=== PATIENT | female | born 1950 | race Caucasian/White ===

== ENCOUNTER 2020-09-01 12:46 | Inpatient (IN) | payer MEDICARE ==
--- NOTE | 2020-09-01 13:41 | ED ---
General Adult HPI - General Chief complaint: Psychiatric Symptoms Stated complaint: Hallucinations Time Seen by Provider: 09/01/20 12:50 Source: patient, family, RN notes reviewed, old records reviewed Mode of arrival: wheelchair - History of Present Illness Initial comments: This is a 70-year-old female who presents emergency Department with a recent history since June of . According to the daughter the patient's hallucinations are worsening over the last 3 months. Patient has seen animals in the house and constantly is seeing bugs on her hands. Daughter states she is bringing her hands with Windex to try to get the bugs off even though the patient states she knows is no bugs she can't stop trying to get rid of him. Patient has been placed on Seroquel. Patient is not gotten better with cervical. According to the daughter this all began after she had knee replacement surgery in June. Patient denies any pain patient denies any difficulty breathing. Patient denies any chest pain abdominal pain. Patient denies headache patient denies numbness weakness. - Related Data Allergies Allergy/AdvReac Type Severity Reaction Status Date / Time No Known Allergies Allergy Verified 09/01/20 16:50 Review of Systems ROS Statement: Those systems with pertinent positive or pertinent negative responses have been documented in the HPI. ROS Other: All systems not noted in ROS Statement are negative. Past Medical History Past Medical History: COPD, Dementia, Hypertension History of Any Multi-Drug Resistant Organisms: None Reported Past Surgical History: Joint Replacement Additional Past Surgical History / Comment(s): cataract surgery Past Psychological History: No Psychological Hx Reported Smoking Status: Former smoker Past Alcohol Use History: None Reported Past Drug Use History: None Reported General Exam - General Exam Comments Initial Comments: GENERAL: Patient is well-developed and well-nourished. Patient is nontoxic and well-hydrated and is in mild distress. ENT: Neck is soft and supple. No significant lymphadenopathy is noted. Oropharynx is clear. Moist mucous membranes. Neck has full range of motion without eliciting any pain. EYES: The sclera were anicteric and conjunctiva were pink and moist. Extraocular movements were intact and pupils were equal round and reactive to light. Eyelids were unremarkable. PULMONARY: Unlabored respirations. Good breath sounds bilaterally. No audible rales rhonchi or wheezing was noted. CARDIOVASCULAR: There is a regular rate and rhythm without any murmurs gallops or rubs. ABDOMEN: Soft and nontender with normal bowel sounds. SKIN: Skin is clear with no lesions or rashes and otherwise unremarkable. NEUROLOGIC: Patient is alert and oriented x3. Cranial nerves II through XII are grossly intact. Motor and sensory are also intact. Normal speech, volume and content. Symmetrical smile. MUSCULOSKELETAL: Normal extremities with adequate strength and full range of motion. LYMPHATICS: No significant lymphadenopathy is noted PSYCHIATRIC: Patient currently thinks there are bugs on her arms now she's trying to get them off as I speak to her. Course Vital Signs 09/01/20 09/01/20 09/01/20 12:52 13:42 14:00 Temperature 98.6 F Pulse Rate 100 Respiratory 18 18 Rate Blood Pressure 154/77 144/74 O2 Sat by Pulse 97 97 93 L Oximetry 09/01/20 09/01/20 09/01/20 14:20 14:30 15:00 Temperature Pulse Rate 92 Respiratory 18 Rate Blood Pressure 133/63 133/63 125/73 O2 Sat by Pulse 95 95 94 L Oximetry 09/01/20 15:30 Temperature Pulse Rate 61 Respiratory 18 Rate Blood Pressure 149/85 O2 Sat by Pulse 97 Oximetry Medical Decision Making - Medical Decision Making EKG shows normal sinus rhythm at 86 bpm OR interval 178 QRSs 100 QT interval 384 QTC is 459 per patient's EKG shows no ST segment elevation or depression CAT scan showed no acute abnormality. Patient was evaluated by [facility] and they did not think she met criteria for the psychiatric floor. I went back into reevaluate the patient and she continues to see animals in the room and bugs on her body to the point where she was scratching herself. [facility] agreed [facility] admit the patient admitted the patient I consult the neurology - Lab Data Result diagrams: 09/01/20 13:43 09/01/20 13:43 Lab Results 09/01/20 09/01/20 09/01/20 Range/Units 13:43 13:43 13:43 WBC 8.5 (3.8-10.6) k/uL RBC 4.83 (3.80-5.40) m/uL Hgb 13.6 (11.4-16.0) gm/dL Hct 41.7 (34.0-46.0) % MCV 86.3 (80.0-100.0) fL MCH 28.1 (25.0-35.0) pg MCHC 32.6 (31.0-37.0) g/dL RDW 14.5 (11.5-15.5) % Plt Count 280 (150-450) k/uL MPV 7.3 Neutrophils % 72 % Lymphocytes % 17 % Monocytes % 7 % Eosinophils % 2 % Basophils % 0 % Neutrophils # 6.1 (1.3-7.7) k/uL Lymphocytes # 1.5 (1.0-4.8) k/uL Monocytes # 0.6 (0-1.0) k/uL Eosinophils # 0.2 (0-0.7) k/uL Basophils # 0.0 (0-0.2) k/uL Sodium 140 (137-145) mmol/L Potassium 3.5 (3.5-5.1) mmol/L Chloride 99 (98-107) mmol/L Carbon Dioxide 26 (22-30) mmol/L Anion Gap 15 mmol/L BUN 24 H (7-17) mg/dL Creatinine 1.15 H (0.52-1.04) mg/dL Est GFR (CKD-EPI)AfAm 55 (>60 ml/min/1.73 sqM) Est GFR (CKD-EPI)NonAf 48 (>60 ml/min/1.73 sqM) Glucose 103 H (74-99) mg/dL Calcium 10.1 (8.4-10.2) mg/dL Magnesium 1.7 (1.6-2.3) mg/dL Total Bilirubin 0.6 (0.2-1.3) mg/dL AST 44 H (14-36) U/L ALT 36 H (4-34) U/L Alkaline Phosphatase 108 (38-126) U/L Total Protein 8.6 H (6.3-8.2) g/dL Albumin 4.9 (3.5-5.0) g/dL Urine Color Colorless Urine Appearance Clear (Clear) Urine pH 6.5 (5.0-8.0) Ur Specific [place] 1.006 (1.001-1.035) Urine Protein Negative (Negative) Urine Glucose (UA) Negative (Negative) Urine Ketones Negative (Negative) Urine Blood Negative (Negative) Urine Nitrite Negative (Negative) Urine Bilirubin Negative (Negative) Urine Urobilinogen <2.0 (<2.0) mg/dL Ur Leukocyte Esterase Negative (Negative) Urine Opiates Screen Not Detected (NotDetected) Ur Oxycodone Screen Not Detected (NotDetected) Urine Methadone Screen Not Detected (NotDetected) Ur Propoxyphene Screen Not Detected (NotDetected) Ur Barbiturates Screen Not Detected (NotDetected) U Tricyclic Antidepress Detected H (NotDetected) Ur Phencyclidine Scrn Not Detected (NotDetected) Ur Amphetamines Screen Not Detected (NotDetected) U Methamphetamines Scrn Not Detected (NotDetected) U Benzodiazepines Scrn Detected H (NotDetected) Urine Cocaine Screen Not Detected (NotDetected) U Marijuana (THC) Screen Not Detected (NotDetected) Disposition Clinical Impression: Hallucinations Disposition: ADMITTED IP TO THIS HOSP Referrals: Pavel Loya MD [Primary Care Provider] - 1-2 days Time of Disposition: 17:02
[2020-09-01 14:05] LABS: Appearance,Urine Clear (Clear); Bilirubin,Urine Negative (Negative); Blood,Urine Negative (Negative); Color,Urine Colorless; Glucose,Urine (UA) Negative (Negative); Ketones,Urine Negative (Negative); Leukocyte Esterase,Urine Negative (Negative); Nitrite,Urine Negative (Negative); PH, Urine 6.5 (5.0-8.0); Protein,Urine Negative (Negative); Specific Gravity,Urine 1.006 (1.001-1.035); Urobilinogen,Urine <2.0 mg/dL (<2.0)
[2020-09-01 14:10] LABS: Albumin 4.9 g/dL (3.5-5.0); Calcium 10.1 mg/dL (8.4-10.2); Magnesium 1.7 mg/dL (1.6-2.3); Potassium 3.5 mmol/L (3.5-5.1); Total Bilirubin 0.6 mg/dL (0.2-1.3); Total Protein 8.6 g/dL (6.3-8.2)
[2020-09-01 14:17] LABS: Basophils % (A) 0 %; Eosinophils # (A) 0.2 k/uL (0-0.7); Eosinophils % (A) 2 %; HCT 41.7 % (34.0-46.0); HGB 13.6 gm/dL (11.4-16.0); Lymphocytes # (A) 1.5 k/uL (1.0-4.8); Lymphocytes % (A) 17 %; MCH 28.1 pg (25.0-35.0); MCHC 32.6 g/dL (31.0-37.0); MCV 86.3 fL (80.0-100.0); Mean Platelet Volume 7.3; Monocytes # (A) 0.6 k/uL (0-1.0); Monocytes % (A) 7 %; Neutrophils # (A) 6.1 k/uL (1.3-7.7); Neutrophils % (A) 72 %; Platelet Count 280 k/uL (150-450); RBC 4.83 m/uL (3.80-5.40); RDW 14.5 % (11.5-15.5); WBC 8.5 k/uL (3.8-10.6)
[2020-09-01 14:19] LABS: Amphetamine Screen,Urine Not Detected (NotDetected); Barbiturate Screen,Urine Not Detected (NotDetected); Benzodiazepines Screen,Urine Detected (NotDetected); Cocaine Screen,Urine Not Detected (NotDetected); Methadone Screen, Urine Not Detected (NotDetected); Opiate Screen,Urine Not Detected (NotDetected); Oxycodone Screen, Urine Not Detected (NotDetected); Phencyclidine Screen,Urine Not Detected (NotDetected); Tricyclic Antidepressant,Urine Detected (NotDetected); Urn Cannabinoid Scrn Not Detected (NotDetected)
--- NOTE | 2020-09-01 15:01 | CT ---
EXAMINATION TYPE: CT brain wo con DATE OF EXAM: 09/01/2020 COMPARISON: None HISTORY: 70-year-old female Hallucinations TECHNIQUE: Examination was done in axial plane without intravenous contrast. Coronal and sagittal r econstructions performed. CT DLP: 1153.4 mGycm Automated exposure control for dose reduction was used. FINDINGS: There is no evidence of acute intracranial hemorrhage, acute ischemic changes, mass effect, or extra -axial fluid collection. There is no effacement of cerebral sulci or basal subarachnoid cisterns. Th ere is no midline shift. Pacheco-white matter distinction is preserved. Calcified extra-axial lesion along the anterior aspect of the right middle cranial fossa measuring 1. 0 cm, likely meningioma. Mild to moderate generalized supratentorial volume loss especially central cerebral atrophy. Secondar y prominence to the ventricular system. Mandujano ratio was calculated at 0.37. [id number] patchy periventricular white matter hypodensities in both cerebral hemispheres. Paranasal sinuses and mastoid air cells well pneumatized. Orbits and globes are intact. IMPRESSION: 1. Mild hydrocephalus likely ex vacuo enlargement from central cerebral atrophy. Correlate to exclude a component of NPH. 2. Mild to moderate patchy burden of chronic small vessel ischemic disease. Otherwise, no acute intra cranial abnormality seen.
[2020-09-01] MEDS ORDERED: SODIUM CHLORIDE 0.9% 1,000 ML IV ONE (17:08)
[2020-09-01] MEDS ORDERED: HYDROcodone/APAP 5-325MG 1 EACH TAB PO PRN (18:53)
[2020-09-01 19:20] LABS: C Reactive Protein 6.9 mg/L (<10.0)
--- NOTE | 2020-09-01 19:24 | XR ---
EXAMINATION TYPE: XR chest 1V portable DATE OF EXAM: 09/01/2020 COMPARISON: 07/05/2010 HISTORY: Short of breath TECHNIQUE: Single view FINDINGS: There is no heart failure nor confluent pneumonic infiltrate. Costophrenic angles are clear . There are no hilar masses. IMPRESSION: No active cardiopulmonary disease. No adverse change.
[2020-09-01] MEDS: 1: MVI, ADULT NO.4 WITH VIT K 10 ML, THIAMINE 100 MG, FOLIC ACID 1 MG in SODIUM CHLORIDE IV SCH ×4 (19:37)
--- NOTE | 2020-09-01 19:51 | HP ---
HISTORY AND PHYSICAL DATE OF SERVICE: 09/01/2020 CHIEF COMPLAINT: Hallucinations. HISTORY OF PRESENT ILLNESS: This 70-year-old woman with a past medical history of multiple medical problems, including COPD, dementia, hypertension, DJD, being followed by Dr. Pavel Loya in the outpatient setting, apparently had knee surgery last year, and the patient started to have some hallucinations subsequently. The patient also had cataract surgery yesterday. The hallucinations worsened. The patient was taken to [facility] and was admitted for further evaluation and treatment. The patient is constantly seeing bugs and the patient is scratching. The patient apparently rubbed the legs with a Kleenex and offered to show me the bugs which are "real big" and which are bees, according to her. The patient was trying to use Windex to get rid of the bugs. The patient is on Seroquel and the patient is being closely monitored at this time. There is no history of any fever, rigor or chills. No history of headache, loss of consciousness, seizures. PAST MEDICAL HISTORY: History of COPD, dementia, hypertension. HOME MEDICATIONS: OxyIR, Celebrex, Tylenol, Seroquel, simvastatin, K-Dur, tamoxifen, bupropion, Lasix and Norvasc. ALLERGIES: NONE. FAMILY HISTORY: No history of heart disease or strokes in the family. SOCIAL HISTORY: Previous history of smoking. REVIEW OF SYSTEMS: ENT: Diminished hearing. Diminished vision. CARDIOVASCULAR SYSTEM: No angina, palpitations. RESPIRATORY SYSTEM: As mentioned earlier. GI: No nausea, vomiting. : No dysuria or retention. NERVOUS SYSTEM: No numbness, weakness. ALLERGY/IMMUNOLOGY: No asthma, hayfever. MUSCULOSKELETAL: As mentioned earlier. HEMATOLOGY/ONCOLOGY: No history of anemia. ENDOCRINE: No history of diabetes, hypothyroidism. CONSTITUTIONAL: As mentioned earlier. DERMATOLOGY: Negative. RHEUMATOLOGY: Negative. PSYCHIATRY: As mentioned earlier. PHYSICAL EXAMINATION: Patient alert and oriented x3. Pulse 84, blood pressure 155/70, respiration 18, temperature 98.2, pulse ox 94% on room air. HEENT: Conjunctivae normal. NECK: No jugular venous distention. CARDIOVASCULAR SYSTEM: S1, S2 muffled. RESPIRATORY SYSTEM: Breath sounds diminished at the bases. A few scattered rhonchi and crackles. ABDOMEN: Soft, non-tender. No mass palpable. LEGS: No edema. No swelling. NERVOUS SYSTEM: Higher functions as mentioned earlier. Moves all 4 limbs. No focal motor or sensory deficit. LYMPHATICS: No lymph node palpable in neck, axillae or groin. SKIN: No ulcer, rash, bleeding. JOINTS: No active deforming arthropathy. LABS: CBC within normal limits. Creatinine is 1.15. AST is 44, ALT 36. The baseline creatinine is not available. ASSESSMENT: 1. Hallucinations for evaluation; possible metabolic encephalopathy, possibly medication-induced; possible delirium. 2. Dehydration with acute renal failure. 3. Elevated AST and ALT; mild hepatitis. 4. History of chronic obstructive pulmonary disease. 5. Dementia. 6. Hypertension. 7. History of degenerative joint disease. 8. History of recent cataract surgery. 9. Remote history of nicotine dependence. 10.Obesity with body mass index of 43.9. 11.FULL CODE. RECOMMENDATIONS AND DISCUSSION: In this 70-year-old woman who presented with multiple complex medical issues, at this time the exact etiology of hallucinations is unknown. I would recommend holding off the pain medications and the rest of the medications. Also obtain a neurology and psych consult. COVID-19 has been requested. Overall prognosis is extremely guarded. DVT prophylaxis. Symptomatic treatment will be provided. Will review the medications. Overall prognosis is guarded because of multiple complex medical issues. Further recommendations to follow. A copy of this dictation is being forwarded to Dr. Pavel Loya, who is the primary physician. MMVINNYL / SHAVONN: [id number] /
[2020-09-01] MEDS: HEPARIN SODIUM,PORCINE 5,000 UNIT/ML 1 ML VIAL SQ SCH (22:40)
[2020-09-01] MEDS: ACETAMINOPHEN TAB 500 MG TAB PO SCH (22:40)
[2020-09-01] MEDS: ATORVASTATIN 20 MG TAB PO SCH (22:40)
[2020-09-02] MEDS: 1: MVI, ADULT NO.4 WITH VIT K 10 ML, THIAMINE 100 MG, FOLIC ACID 1 MG in SODIUM CHLORIDE IV SCH ×8 (06:40→19:24)
[2020-09-02] MEDS: ACETAMINOPHEN TAB 500 MG TAB PO SCH ×3 (08:20→21:38)
[2020-09-02] MEDS: FUROSEMIDE 20 MG TAB PO SCH (08:20)
[2020-09-02] MEDS: amLODIPine 10 MG TAB PO SCH (08:20)
[2020-09-02] MEDS: HEPARIN SODIUM,PORCINE 5,000 UNIT/ML 1 ML VIAL SQ SCH ×2 (08:21→21:38)
[2020-09-02] MEDS: POTASSIUM CHLORIDE ER 10 MEQ TAB.ER.PRT PO SCH (08:21)
[2020-09-02] MEDS: PANTOPRAZOLE 40 MG TABLET PO SCH (08:21)
[2020-09-02 10:33] LABS: Basophils # (A) 0.04 X 10*3/uL (0.00-0.10); Basophils % (A) 0.6 %; Eosinophils % (A) 2.8 %; HCT 37.5 % (37.2-46.3); HGB 11.8 g/dL (12.0-15.0); Lymphocytes # (A) 1.52 X 10*3/uL (0.90-5.00); Lymphocytes % (A) 21.6 %; MCH 28.1 pg (27.0-32.0); MCHC 31.5 g/dL (32.0-37.0); MCV 89.3 fL (80.0-97.0); Mean Platelet Volume 10.8 fL (9.5-12.2); Monocytes # (A) 0.67 X 10*3/uL (0.20-1.00); Monocytes % (A) 9.5 %; Neutrophils # (A) 4.58 X 10*3/uL (1.80-7.70); Neutrophils % (A) 65.1 %; Platelet Count 261 X 10*3/uL (140-440); RDW 13.8 % (11.5-14.5); WBC 7.04 X 10*3/uL (4.50-10.00)
[2020-09-02 10:51] LABS: African American GFR (CKD) 58.5 (60.0-200.0); Albumin 3.9 g/dL (3.80-4.90); Albumin/Globulin Ratio 1.08 (1.60-3.17); Anion Gap 8.7 mmol/L (4.00-12.00); BUN/Creat Ratio 17.27 Ratio (12.00-20.00); Calcium 9.6 mg/dL (8.7-10.3); Carbon Dioxide 29.3 mmol/L (21.6-31.8); Globulin 3.6 g/dL (1.6-3.3); Non-African American GFR(CKD) 50.5 (60.0-200.0); Potassium 3.1 mmol/L (3.5-5.5); Total Bilirubin 0.6 mg/dL (0.3-1.2); Total Protein 7.5 g/dL (6.2-8.2)
[2020-09-02] MEDS ORDERED: Potassium Replacement Protocol 1 EACH MISC MISCELLANE PRN (12:02)
[2020-09-02] MEDS ORDERED: Magnesium Replacement Protocol 1 EACH MISC MISCELLANE PRN (12:02)
--- NOTE | 2020-09-02 12:21 | P.CNNES ---
History of Present Illness Consult date: 09/02/20 Requesting physician: Mark Ayon Reason for Consult: hallucination History of Present Illness: This is a 70-year-old woman with medical history of hypertension and chronic depression that presented to the emergency department on 09/01/2020 for hallucinations since June 2020. Some of the history is obtained from her daughter (Olga) via phone, after left Knee placement in 06/2020. She see zombies, cats and dogs that no one sees. Now she is seeing bugs and ant on her skin. She is stated she few occasion that she saw a random person and he told her he is not going. She was started on Seroquel 2 month and increased it on Aug to bid dose. She is also on Wellbutrin for her depression and per daughter she said she had it for >40 years. Prior to this knee replacement had mild dementia 1-2 years ago (like not knowing the president or little facts (mostly new memory but has intact remote memory) and was evaluated by a neuropsychiatrist for dementia and was told it was normal for her age. The daughter stated prior to knee replacement the patient would have normal conversation, able to feed, bathe herself and cook. But since the surgery she has been occupied with these hallucination that she is able to continue to feed herself, and use the bathroom on her own but needs assistance with bathing since occupied with bugs on her body. No focal weakness. She had lower grade fever and was told she had cellulitis of legs and received treatment. No signicant weight loss Denies history of focal weakness. She has not history seizure. She lives for her mother and her . Patient home medication includes oxycodone 5 mg every 4 hours when necessary, Celebrex 200 mg twice a day, Wellbutrin. Seroquel 50 mg 1 tablet twice a day. Patient is being managed by her primary team and he is the one adjusting her Welbutrin and rest of medications. There is no family history of dementia according to daughter. Patient did acknowledge she has been having visual hallucination that are sporadic throughout the day and varies in duration. She said it can be multiple times a day that she would see things like ant crawling on her body. She acknowledges that those things she see's are not real. She stated that since 04/2020 she has been having episodes of urinary incontinence, and felt her gait has been off but unsure for how long. Since the knee surgery she has been using a walker. SHe was started on Seroquel but not helping. Lately she is using Windex and spraining her hands to get the bugs off Workup in the hospital consisted of: Vitals: Blood pressure of 154/77, heart rate of 100, respiratory of 18, temperature of 98.6 Fahrenheit oral pulse ox of 97% at room air. CT of the head is reported as mild hydrocephalus likely ex vacuo enlargement from the central cerebral atrophy. Correlate to exclude a component of normal pressure hydrocephalus. Mild to moderate patchy burning of chronic small vessel ischemic disease. Otherwise no acute intracranial abnormality seen. EKG is reported as normal sinus rhythm. T wave abnormality, consider inferior ischemia. Abnormal EKG. White blood cells 8.5 and the repeated 7.04 which are normal. ESR is 25 which is slightly above normal and it doesn't seem significant normal is between 0 and 20. Sodium is 140. The BUN is 24 and the creatinine is 1.15 and the repeated is the creatinine is 1.1 which is normal. Urine drug screen is positive for tricyclic antidepressant and positive for benzos. Review of Systems Review of system is limited with apparent positive and negative as per HPI. Past Medical History Past Medical History: COPD, Dementia, Hypertension History of Any Multi-Drug Resistant Organisms: None Reported Past Surgical History: Joint Replacement Additional Past Surgical History / Comment(s): cataract surgery Past Psychological History: No Psychological Hx Reported Smoking Status: Former smoker Past Alcohol Use History: None Reported Past Drug Use History: None Reported Medications and Allergies Home Medications Medication Instructions Recorded Confirmed Type Acetaminophen Tab [Tylenol Tab] 1,000 mg PO TID@0700,1400,0 09/01/20 09/01/20 History Celecoxib [CeleBREX] 200 mg PO BID@0700,0 09/01/20 09/01/20 History Furosemide [Lasix] 20 mg PO DAILY@69909/01/20 09/01/20 History Potassium Chloride ER [K-Dur 10] 10 meq PO DAILY@00 09/01/20 09/01/20 History QUEtiapine [SEROquel] 50 mg PO BID@0700,219909/01/20 09/01/20 History Simvastatin 40 mg PO DAILY@219909/01/2021 History Tamoxifen Citrate 20 mg PO DAILY@0700 09/01/20 09/01/20 History amLODIPine [Norvasc] 10 mg PO DAILY@0700 09/01/20 09/01/20 History buPROPion HCL [Wellbutrin XL] 300 mg PO DAILY@0700 09/01/20 09/01/20 History buPROPion XL [Wellbutrin Xl] 150 mg PO BID@0700,0 09/01/20 09/01/20 History metOLazone [Zaroxolyn] 2.5 mg PO BID@0700,2200 09/01/20 09/01/20 History oxyCODONE HCL [OxyIR] 5 mg PO Q4H PRN 09/01/20 09/01/20 History Allergies Allergy/AdvReac Type Severity Reaction Status Date / Time No Known Allergies Allergy Verified 09/01/20 16:50 Physical Examination - Vital Signs Vital Signs: Vital Signs Temp Pulse Pulse Resp BP BP Pulse Ox 09/02/20 08:00 97.7 F 69 16 126/72 95 09/02/20 02:35 98.1 F 75 20 138/75 95 09/01/20 21:40 20 09/01/20 20:45 98.1 F 78 20 129/83 94 L 09/01/20 18:43 98.2 F 84 18 151/70 95 09/01/20 15:30 61 18 149/85 97 09/01/20 15:00 125/73 94 L 09/01/20 14:30 133/63 95 09/01/20 14:20 92 18 133/63 95 09/01/20 14:00 18 144/74 93 L 09/01/20 13:42 97 09/01/20 12:52 98.6 F 100 18 154/77 97 Intake and Output 09/01/20 09/02/20 09/02/20 22:59 06:59 14:59 Intake Total 200 Balance 200 Intake: Oral 200 Other: Voiding Method Bedside Commode Diaper # Voids 3 Weight 108.862 kg GENERAL: The patient is lying in bed and is not in acute distress. CHEST: The heart rate is regular rate rhythm. No murmurs to auscultation. LUNG: Clear to auscultation bilaterally no wheezing noted throughout. Not labored breathing. ABDOMEN/GI: Bowel sounds present in all 4 quadrants. No tenderness to palpation throughout. NEUROLOGICAL: Higher mental function: The patient is awake, alert, oriented to self, place and time. She was able to state the last 3 U.[place]. president correctly. Patient is following simple and complex commands. No aphasia and no neglect. Cranial nerves: The pupils are round, equal and reactive to light and accommodation. Visual hendricks are full to confrontation throughout. Extraocular movement is intact no nystagmus is noted. Facial sensation is normal to touch throughout. The facial strength is normal throughout. Hearing is normal bilaterally to hand rub. Tongue is midline and moved [id number] without any difficulty. No dysarthria is noted. Shoulder shrug is normal bilaterally. Motor: Gait was attempted but was having knee pain so had to be deferred. The strength is limited over left lower extremity because of pain but had at least 4+ and left ankle is 5/5. Otherwise 5 over 5 throughout. Normal tone and bulk. Cerebellum: Normal finger to nose bilaterally. Sensation: Sensation is normal to touch throughout. Reflexes (right/left): 2+ in uppers, 1+ at ankles and could not assess knees because of her refusal. Plantars are downgoing bilaterally. Results Calcium is 10.1 which is normal. The glucose is 103 and a repeat is 101. AST is 44 and the ALTs 36. CRP is 6.9 which is normal Urine analysis is negative for urinary tract infection Sanchez virus PCR was not detected - Laboratory Findings CBC and BMP: 09/02/20 07:54 09/02/20 07:54 Abnormal Lab Findings: Abnormal Labs 09/01/20 09/01/20 09/01/20 13:43 13:43 13:43 Hgb MCHC ESR 25 H D-Dimer Potassium BUN 24 H Creatinine 1.15 H Est GFR (CKD-EPI)AfAm Est GFR (CKD-EPI)NonAf Glucose 103 H AST 44 H ALT 36 H Total Protein 8.6 H Globulin Albumin/Globulin Ratio U Tricyclic Antidepress Detected H U Benzodiazepines Scrn Detected H 09/01/20 09/02/20 09/02/20 19:24 07:54 07:54 Hgb 11.8 L MCHC 31.5 L ESR D-Dimer 1.98 H Potassium 3.1 L BUN Creatinine Est GFR (CKD-EPI)AfAm 58.5 L Est GFR (CKD-EPI)NonAf 50.5 L Glucose AST 42 H ALT Total Protein Globulin 3.6 H Albumin/Globulin Ratio 1.08 L U Tricyclic Antidepress U Benzodiazepines Scrn Assessment and Plan Assessment: This is a 70-year-old woman that after she had surgery (left knee replacement) in June 2020 he started having visual hallucination that is worsening. Visual hallucination since left knee replacement 06/2020. Unsure exact cause. Possibly from medication use (on high dose on Wellbutrin, pain medication and has positive benzo that is not on her medication list) and possibly component of post-op delerium after left knee surgery. Cognitive impairment has been going on for last 1-2 years and per the daughter and it seemed mild (she had neuropsych evaluation and was told it was normal) Chronic history of depression Acute kidney injury--resolved Slight elevated AST-trending down (AST 44) Recent cataract surgery over left eye. Hypertension Plan: I ordered TSH, vitamin B12 and folate. I ordered a routine EEG. I will not start the patient on antiepileptic drugs unless there is epidural to form discharges or seizure on the EEG. 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 I think the patient will benefit from the further workup as an outpatient and that she can see a neurosurgeon (after her knee recovers to avoid any limitation of exam) for large volume tap and if gait improved and no further urinary incontinence then possibly SPECIAL AGENT shunt. Recommend MRI the brain and this can be done as an outpatient. Patient is on [place] 5/325 every 6 hours when necessary. I recommend to avoid any opiates or any sedation that would affect the patient's mental status. On home (Oxycodone, celebrex, seroquel and hig dose Wellbutrin) I consulted psychiatry team. I spoke with the psychiatrist at our facility and he said this could be due to medication effect I recommend the patient to follow-up in the dementia clinic as outpatient as well general neurologist within 2-3 weeks. We'll defer the rest of the medical management to the primary team. Thank you for the consultation. Magen Owen MD Neuro-Hospitalist Time with Patient: Greater than 30
--- NOTE | 2020-09-02 13:23 | P.CN ---
Psychiatric Consult - . Consult date: 09/02/20 Consult:: IDENTIFYING DATA: This patient is a , retired, 70-year-old female who presents to the emergency department with a chief complaint of visual hallucinations HISTORY OF PRESENT ILLNESS: The patient presented to the hospital or 09/01/2020, brought to the emergency department on the recommendation of her primary care physician for concern of visual hallucinations and tactile hallucinations have been worsening over the past 3 months. Psychiatry has been consulted for evaluation and management of these visual hallucinations. History was provided by the patient as well as her daughter after the patient verbally consented to allowing this physician to speak with her daughter. The patient and her daughter reports that the patient has been expressing these visual hallucinations for the past 3 months shortly after a left knee replacement surgery in June. The patient describes that these hallucinations have been occurring every day until yesterday. She reports seeing cats, dogs, and bugs. Her daughter also reports the patient has occasionally seen other people. Furthermore on top of the visual hallucinations, the patient endorses tactile hallucinations stating that she feels like bugs are crawling on her skin or in her skin. The daughter also reports that the patient appears to respond to some auditory hallucinations as well but this is much less severe than the visual hallucinations. The patient and daughter maintained that the patient has not expressed any hallucinations prior to the surgery. The patient does endorse some paranoia. She does state that she has been experiencing some paranoia feeling like others are watching her or following her over the past year but states that it has not been to the point where it interrupts her daily life. She denies any other psychotic symptoms. The patient has been prescribed Seroquel 50 mg by mouth twice a day by her primary care physician for management of the hallucinations but has not noticed any significant benefit. In regards to mood symptoms, the patient does report a significant history of depression. She is currently prescribed Wellbutrin for the past 2 years by her primary care physician. The patient states that she would often be angry with her and would throw occasional tantrums. She denies ever becoming violent. The patient vehemently denies any past or current suicidal or homicidal ideation, intention, and/or plan. The patient does endorse symptoms of depression including crying episodes, and feelings of hopelessness and helplessness. Despite this, the patient reports no change in appetite, sleep, or anhedonia. There is a suspected diagnosis of neurocognitive disorder secondary to dementia. The patient's daughter reports that the patient has occasionally been lost in her own home and has been misplacing objects in the home. The patient has reportedly undergone neurocognitive testing and was told it was normal. PAST PSYCHIATRIC HISTORY: Patient has a a history of Depression. The patient is currently on a home regimen that includes Seroquel 50 mg twice a day, and Wellbutrin 300 mg daily and 150 mg twice a day. The patient reports a prior trial of Zoloft in the past. Patient denies any previous psychiatric hospitalizations. Patient denies any psychiatric outpatient follow-up. The patient is currently prescribed her psychotropic medications through her primary care provider Dr. Alvarado. Patient denies any history of suicide attempts in the past. PAST MEDICAL HISTORY: Past Medical History: COPD, Dementia, Hypertension History of Any Multi-Drug Resistant Organisms: None Reported Past Surgical History: Joint Replacement Additional Past Surgical History / Comment(s): cataract surgery ALLERGIES: NO KNOWN DRUG ALLERGIES CHEMICAL DEPENDENCY HISTORY: The patient reports that she is a former smoker but has not smoked in years since being diagnosed with sleep apnea. She reports ra re alcohol use. She denies any marijuana or illicit drug use. FAMILY PSYCHIATRIC/SUBSTANCE USE HISTORY: The patient reports that her paternal grandfather committed suicide. She reports her brother was an alcoholic. SOCIAL HISTORY: Patient was born in [place]. Patient was raised in [facility]. The patient has been to her Ketan for 51 years. She has 2 adult daughters aged 40 and 50. She has a 12th grade education. 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 She currently lives with her and daughter. She denies any legal problems or history. MENTAL STATUS EXAM: General Appearance: Patient appears to be stated age is alert, pleasant, and cooperative. Patient appears to have fair hygiene and grooming wearing hospital gown with fair eye contact. Poor dentition. Behavior: Patient is calmly sitting in the chair beside the bed without any agitated behavior. Psychomotor activity appears normal. Speech: Patient's speech is fluent and nonpressured. Mood/Affect: Patient reports their mood is "feeling okay," affect is congruent, euthymic to bright. Suicidality/Homicidality: The patient vehemently denies any suicidal or homicidal ideation, intention, and/or plan. Perceptions: At this time, the patient reports that she is not experiencing any auditory or visual hallucinations. She last expressed these prior to this admission. Though content/process: The patient endorses paranoia at baseline. No other delusional thought content is endorsed. Thought process appears to be linear and logical in short conversation. Memory and concentration: AOX3, grossly intact for the purposes of this session. Can spell "WORLD" backwards Judgment and insight: Fair IMPRESSIONS: Psychosis, unspecified - Strongly suspect secondary to medication side effects such as Wellbutrin due to increased dopaminergic action of this medication as the patient is on a significantly high dose. Furthermore, the patient is also prescribed oxycodone 5 mg every 4 hours as needed for pain at home as well. These medications may precipitate or exacerbate psychosis. The patient also tested positive for benzodiazepines which is not on her medication list. -The patient may also be experiencing a postoperative delirium after her left knee replacement surgery this past June. Depressive disorder, unspecified Neurocognitive disorder Acute kidney injury - resolving Recent cataract surgery over the left eye -Not likely to be a Ashok Moose syndrome as the patient is significant bothe red by the hallucinations and is at times confused whether the hallucinations were real or not. Furthermore, the patient has been experiencing these hallucinations even after correction of her vision. PLAN: -At this time patient DOES NOT meet criteria for inpatient psychiatric admission. -Delirium precautions recommended with patient including - avoiding use of narcotics and AUTO BODY WORKER sedatives, limit anticholinergic medications when possible, frequent re-orientation, minimize use of restraints, open window shades during the day and close them at night -Would recommend the following medication changes/additions: Strongly recommend holding Wellbutrin as this medication may contribute to her visual hallucinations. The patient reports benefit from Zoloft in the past. Depression to be managed by her outpatient physician at this time. We will start Risperdal 0.25 mg by mouth every morning and 0.75 mg by mouth daily at bedtime for management of psychosis. The risks, benefits, and treatme nt alternatives were discussed with the patient and her daughter in great detail. In particular we discussed the black box warning of antipsychotic medications causing increased likelihood of cardiac events in the elderly. They are both agreeable to starting the medication today. Strongly recommend limiting pain medication which may contribute to patient's history of falls as well as psychosis. -Agree with Neurology plan. TSH, B12, and folate are ordered. -Psychiatry will continue to follow. 09/02/20 13:22
[2020-09-02] MEDS: POTASSIUM CHLORIDE ER 20 MEQ TAB.ER PO SCH ×2 (13:45→16:34)
--- NOTE | 2020-09-02 17:57 | PN ---
PROGRESS NOTE DATE OF SERVICE: 09/02/2020 This 70-year-old woman who was admitted with hallucinations is being evaluated at this time. The patient was seen by Neurology and Psychiatry. Neurology, Dr. Owen, thought that the patient was having _hallucinations and ordered TSH and adjustment of the medications. Some cognitive impairment was also noted. Opiates have been discontinued. The psychiatrist who has seen the patient also recommended medication such as Wellbutrin due to increased dopaminergic action of these medications. The patient is being closely monitored. Past medical history reviewed. CT showed soem hydrocephalus. The patient is still seeing bugs, which is chronic, in her salad, which she showed me actually. REVIEW OF SYSTEMS: CARDIOVASCULAR SYSTEM: No angina, palpitations. RESPIRATORY SYSTEM: As mentioned earlier. GI: As mentioned earlier. : No dysuria or retention. NERVOUS SYSTEM: No numbness, weakness. CURRENT MEDICATIONS: Tylenol, [place]ampl[place], Norvasc, Lipitor, Lasix, heparin, magnesium, Protonix, vitamins, K-Dur, Risperdal. PHYSICAL EXAMINATION: Patient is alert, oriented x3. Pulse 78, blood pressure 148/76, respirations 16, temperature 97.2, pulse ox 94% on room. HEENT: Conjunctivae normal. NECK: No jugular venous distention. CARDIOVASCULAR SYSTEM: S1, S2 muffled. RESPIRATORY SYSTEM: Breath sounds diminished at the bases. No rhonchi. No crackles. ABDOMEN: Soft. NERVOUS SYSTEM: No focal deficit. LABS: D-dimer is 1.98 and hemoglobin 11.8. Creatinine is 1.1. COVID-19 initial test was negative. ASSESSMENT: 1. Visual hallucinations, possible metabolic encephalopathy, possibly medication- induced. R/O NPH 2. Elevated D-dimer. 3. Dehydration with acute renal failure with prerenal acute tubular necrosis, present on admission. 4. Elevated AST, ALT, mild hepatitis. 5. History of chronic obstructive pulmonary disease. 6. Dementia. 7. Hypertension. 8. History of recent cataract surgery. 9. History of recent knee surgery. 10.History of degenerative joint disease. 11.Remote history of nicotine dependence. 12.Obesity with body mass index of 43.9. 13.FULL CODE. RECOMMENDATIONS AND DISCUSSION: I recommend to continue current medications, continue symptomatic treatment. Otherwise, as mentioned earlier, the patient has been on several medications after knee surgery and cataract surgery. At this time I would stop all the opiates and other medications, including Wellbutrin, and only continue with Champlin. The patient also had multiple other abnormal labs. I would recommend also CT angio of the chest to complete the workup. Also ultrasound of the legs. A brain CT was done which I reviewed personally and which showed some evidence of hydrocephalus also. D/W Dr Owen, recommended out pt neuro work up. Overall prognosis is guarded. Further recommendations to follow. MMODL / IJN: [id number] / ANTONIETTA
--- NOTE | 2020-09-02 18:21 | US ---
EXAMINATION TYPE: US venous doppler duplex LE DATE OF EXAM: 09/02/2020 5:56 PM COMPARISON: NONE CLINICAL HISTORY: dvt. R/O DVT. Swelling in legs. No hx of DVT. Patient does not take blood thinners. Hx bilateral knee replacement. SIDE PERFORMED: Bilateral TECHNIQUE: The lower extremity deep venous system is examined utilizing real time linear array sonog tiffani with graded compression, doppler sonography and color-flow sonography. VESSELS IMAGED: Common Femoral Vein Deep Femoral Vein Greater Saphenous Vein * Femoral Vein Popliteal Vein Small Saphenous Vein * Proximal Calf Veins (* superficial vessels) Exam limited due to edema and patient body habitus. Right Leg: No evidence of DVT in veins imaged at this time from prox calf veins to CFV/GSV. Left Leg: No evidence of DVT in veins imaged at this time from prox calf veins to CFV/GSV. IMPRESSION: No sign of deep vein thrombosis in both legs.
--- NOTE | 2020-09-02 19:13 | CT ---
EXAMINATION TYPE: CT angio chest DATE OF EXAM: 09/02/2020 COMPARISON: None HISTORY: SOB CT DLP: 644.6 mGycm Automated exposure control for dose reduction was used. CONTRAST: Performed with IV Contrast, patient injected with 70 mL of Isovue 370. There are 3-D post processed images. The lungs are clear of consolidation. There is no pleural effusion. Heart is enlarged. There is no pe ricardial effusion. There is no mediastinal adenopathy. There are no hilar masses. Thoracic aorta is intact. There is no aneurysm or dissection. There is normal contrast opacification of the pulmonary arteries. There are no filling defects. There is multilevel thoracic spondylotic changes. There is mild thoracic dextroscoliosis. There is T1 2 25% compression fracture that appears old. IMPRESSION: No evidence of pulmonary embolism. No evidence of acute lung disease. Minimal fibrotic changes at the lung bases. Old L1 compression fracture.
[2020-09-02] MEDS ORDERED: risperiDONE 0.25 MG TAB PO SCH (21:00)
[2020-09-02] MEDS: ATORVASTATIN 20 MG TAB PO SCH (21:37)
[2020-09-03] MEDS: 1: MVI, ADULT NO.4 WITH VIT K 10 ML, THIAMINE 100 MG, FOLIC ACID 1 MG in SODIUM CHLORIDE IV SCH ×12 (05:35→22:36)
[2020-09-03] MEDS: ACETAMINOPHEN TAB 500 MG TAB PO SCH ×3 (08:14→21:00)
[2020-09-03] MEDS: POTASSIUM CHLORIDE ER 10 MEQ TAB.ER.PRT PO SCH (08:15)
[2020-09-03] MEDS: HEPARIN SODIUM,PORCINE 5,000 UNIT/ML 1 ML VIAL SQ SCH ×2 (08:15→21:00)
[2020-09-03] MEDS: FUROSEMIDE 20 MG TAB PO SCH (08:15)
[2020-09-03] MEDS: PANTOPRAZOLE 40 MG TABLET PO SCH (08:15)
[2020-09-03] MEDS: amLODIPine 10 MG TAB PO SCH (08:15)
[2020-09-03] MEDS ORDERED: risperiDONE 0.25 MG TAB PO SCH (09:00)
[2020-09-03 10:56] LABS: Basophils # (A) 0.04 X 10*3/uL (0.00-0.10); Basophils % (A) 0.6 %; Eosinophils # (A) 0.23 X 10*3/uL (0.04-0.35); Eosinophils % (A) 3.7 %; HCT 37.8 % (37.2-46.3); HGB 11.9 g/dL (12.0-15.0); Lymphocytes # (A) 1.48 X 10*3/uL (0.90-5.00); Lymphocytes % (A) 23.7 %; MCH 28.4 pg (27.0-32.0); MCHC 31.5 g/dL (32.0-37.0); MCV 90.2 fL (80.0-97.0); Mean Platelet Volume 10.8 fL (9.5-12.2); Monocytes # (A) 0.65 X 10*3/uL (0.20-1.00); Monocytes % (A) 10.4 %; Neutrophils # (A) 3.82 X 10*3/uL (1.80-7.70); Neutrophils % (A) 61.1 %; Platelet Count 249 X 10*3/uL (140-440); RBC 4.19 X 10*6/uL (4.10-5.20); WBC 6.25 X 10*3/uL (4.50-10.00)
--- NOTE | 2020-09-03 11:47 | P.PN ---
Progress Note - Text Progress Note Date: 09/03/20 IDENTIFYING DATA: This patient is a , retired, 70-year-old female who presents to the emergency department with a chief complaint of visual hallucinations INTERVAL HISTORY: Patient was seen resting in bed and was directable and agreeable to speak with the magazine writer. Patient reports that she began experiencing her visual hallucinations this morning. She states that she has not seen any dogs but has been seeing bugs crawling on her food. She reports that she is currently seeing bugs present in her IV fluid bag. She is otherwise not reporting any tactile hallucinations. She is denying any paranoia or delusions. She is not reporting any suicidal or homicidal ideation, intention, and/or plan. She has been adherent with her medications and is not reporting any significant side effects at this time. MENTAL STATUS EXAM: General Appearance: Patient appears to be stated age is alert, directable, and cooperative. Patient is dressed in hospital gown. Behavior: Patient is calmly seated without any agitated behavior. Approaches cooperative and polite. Psychomotor activity appears normal. Speech: Patient's speech is fluent and nonpressured. Mood/Affect: Mood is "a little bothered." Affect is congruent and appropriate. Suicidality/Homicidality: Patient denies having any suicidal or homicidal ideation intent or plan. Perceptions: The patient is not reporting any tactile or auditory hallucinations. She is endorsing visual hallucinations. Though content/process: There is no evidence of any delusional thought content and thought process is linear and goal-directed. Memory and concentration: AOX3, grossly intact for the purposes of this session Judgment and insight: Improving mildly IMPRESSIONS: Psychosis, unspecified - Strongly suspect secondary to medication side effects such as Wellbutrin due to increased dopaminergic action of this medication as the patient is on a significantly high dose. Furthermore, the patient is also prescribed oxycodone 5 mg every 4 hours as needed for pain at home as well. These medications may precipitate or exacerbate psychosis. The patient also tested positive for benzodiazepines which is not on her medication list. -The patient may also be experiencing a postoperative delirium after her left knee replacement surgery this past June. Depressive disorder, unspecified Neurocognitive disorder Acute kidney injury - resolving Recent cataract surgery over the left eye ASSESSMENT: The patient initially was not endorsing any visual hallucinations yesterday but is currently expressing them today. We will increase the Risperdal to address psychotic symptoms. PLAN: -At this time patient DOES NOT meet criteria for inpatient psychiatric admission. -Delirium precautions recommended with patient including - avoiding use of narcotics and ANALYST PROGRAMMER sedatives, limit anticholinergic medications when possible, frequent re-orientation, minimize use of restraints, open window shades during the day and close them at night -Would recommend the following medication changes/additions: Continue to hold Wellbutrin. Recommend discontinuation of Wellbutrin upon discharge. We will increase Risperdal to 0.5 mg by mouth every morning and 1.5 mg by mouth daily at bedtime to address psychosis. Strongly recommend limiting pain medication which may contribute to patient's history of falls as well as psychosis. -TSH and B12 within normal limits -Psychiatry will continue to follow.
[2020-09-03 12:22] LABS: African American GFR (CKD) 65.6 (60.0-200.0); Albumin 4.1 g/dL (3.80-4.90); Albumin/Globulin Ratio 1.71 (1.60-3.17); Anion Gap 10.3 mmol/L (4.00-12.00); Calcium 9.2 mg/dL (8.7-10.3); Carbon Dioxide 27.7 mmol/L (21.6-31.8); Globulin 2.4 g/dL (1.6-3.3); Magnesium 1.7 mg/dL (1.5-2.4); Non-African American GFR(CKD) 56.6 (60.0-200.0); Potassium 3.5 mmol/L (3.5-5.5); Total Bilirubin 0.5 mg/dL (0.3-1.2); Total Protein 6.5 g/dL (6.2-8.2)
--- NOTE | 2020-09-03 15:08 | PN ---
PROGRESS NOTE DATE OF SERVICE: 09/03/2020 This 70-year-old woman was admitted with hallucinations is being closely monitored. Her visual hallucinations are very clear with having seen bugs and the patient keeps on trying to kill the bugs. Neurology seen the patient. Patient was recommended an MRI and as well as EEG of the brain. Psychiatry has also seen the patient. A chest CTA was done because of the elevated D-dimer, which showed no evidence of any pulmonary embolism, some old L1 compression fracture and minimal fibrotic changes also noted. COVID-19 is negative. PAST MEDICAL HISTORY: Reviewed. REVIEW OF SYSTEMS: CARDIOVASCULAR SYSTEM: No angina. RESPIRATORY SYSTEM: As mentioned earlier. GI: As mentioned earlier. : No dysuria or retention. NERVOUS SYSTEM: No numbness or weakness. ALLERGY/IMMUNOLOGY: No asthma or hay fever. MUSCULOSKELETAL: As mentioned earlier. CURRENT MEDICATIONS: Current medications are reviewed and include Tylenol, [place], Norvasc, Lipitor, Lasix, heparin, magnesium replacement protocol, multivitamins, Risperdal. PHYSICAL EXAMINATION: Patient is alert and oriented x2. Pulse 70, blood pressure 126/75, respirations 16, temperature 97.7, pulse ox 98% on room air. HEENT: Conjunctivae normal. NECK: No jugular venous distention. CARDIOVASCULAR: S1, S2 muffled. RESPIRATORY: Breath sounds diminished at the bases. No rhonchi, no crackles. ABDOMEN: Soft, nontender. No mass palpable. LEGS: No edema, no swelling. NERVOUS SYSTEM: No focal deficits. LABS: WBC 6.2, hemoglobin 11.9. D-dimer is 2.02. ASSESSMENT: 1. Visual hallucinations, possibly metabolic encephalopathy, possibly medication induced. Rule out NPH. 2. Elevated D-dimer, persistent. 3. No evidence of pulmonary embolism. 4. Dehydration with acute renal failure with prerenal acute tubular necrosis present on admission. 5. Elevated AST, ALT and mild hepatitis. 6. History of chronic obstructive pulmonary disease. 7. Dementia. 8. Hypertension. 9. History of recent cataract surgery. 10.History of recent knee surgery. 11.History of degenerative joint disease. 12.Remote history of nicotine dependence. 13.Obesity with body mass index of 43.9. 14.FULL CODE. RECOMMENDATIONS AND DISCUSSION: Recommend to continue current medications, continue symptomatic treatment. Otherwise, potassium has been replaced. D-dimer is persistently elevated. I would recommend hematology/oncology consultation. Discussed with Neurology yesterday. Recommend MRI and as well as possibly neurosurgery evaluation as a as an outpatient. We will continue to monitor. Overall prognosis extremely guarded because of multiple complex medical issues. Psychiatric input appreciated. Further recommendations to follow. SERVANDO / LEANNE: [id number] /
--- NOTE | 2020-09-03 16:57 | EEG ---
ELECTROENCEPHALOGRAM REPORT DATE OF SERVICE: 09/03/2020 CLINICAL HISTORY: This is a 70-year-old woman with visual hallucinations. This video EEG is obtained to evaluate for seizure and epileptiform activity. RELEVANT MEDICATIONS: The patient is not on any antiepileptic drugs. EEG TYPE: A routine 21 channel EEG is performed with video using the 10/20 electrode placement system. DESCRIPTION: Wakefulness, drowsiness and stage 2 sleep are obtained. During wakefulness, there is a posterior dominant rhythm of low to moderate voltage, reactive, well modulated, of 8.5- 9 hertz activity. During drowsiness there is slowing and attenuation of background activity. During stage 2 sleep, there are sleep spindles and K complexes. There is no focal slowing. Interictal and ictal is none. ACTIVATION PROCEDURE: Photic stimulation and hyperventilation are not performed. CLINICAL INTERPRETATION: This is a normal routine EEG. There are no focal slowing, epileptiform discharges or seizures on the EEG. Clinical correlation is recommended. MMANNA / LEANNE: [id number] /
--- NOTE | 2020-09-03 17:06 | MR ---
MR brain without contrast HISTORY: Altered mental status, confusion and hallucinations Multiplanar multisequence imaging through the brain, correlation to brain CT 09/01/2020 There is no restricted diffusion. Cortical atrophy is again seen. Confluent and scattered hyperintens ities extensive in the periventricular, pericallosal, subcortical white matter, at least 50 lesions a re present, increased intensity also noted in the cb. The prominence of the ventricles is similar t o prior CT, there is no hemorrhage. There are normal vascular flow voids. The cerebellopontine angles , corpus callosum, pituitary, cervical medullary junction are within normal limits. Orbits show symme tric appearance. Mild inflammatory change present in the ethmoid air cells. There is a T1 and T2 isointense focus at the anterior aspect of the right temporal lobe measuring patricia roximately 7 8 mm on coronal image #12, 9 to 10 mm on axial image #14 of the T2 data sets, the lesion shows low signal on inversion recovery and corresponds to the focus of increased attenuation seen on CT and may represent a calcified meningioma. impression: Findings may be indicative of age-related atrophy and chronic small vessel ischemia, waldo elate to exclude normal pressure hydrocephalus. Probable meningioma as described previously, contrast -enhanced exam could be performed for additional evaluation
--- NOTE | 2020-09-03 17:56 | P.PN ---
Subjective Progress Note Date: 09/03/20 Patient was seen at bedside and she feels about the same today compared to yesterday she stated that she feet and she sees ants time to time but she knows what she seeing is falls otherwise denies any headache, weakness, numbness, difficulty getting her words out. Objective - Vital Signs Vital signs: Vital Signs Temp 97.7 F 09/03/20 08:00 Pulse 70 09/03/20 08:00 Resp 16 09/03/20 08:00 BP 126/75 09/03/20 08:00 Pulse Ox 96 09/03/20 08:00 Intake & Output 09/02/20 09/03/20 09/03/20 18:59 06:59 18:59 Other: Voiding Method Bedside Commode Diaper # Voids 3 1 # Bowel Movements 1 - Exam GENERAL: The patient is lying in bed and is not in acute distress. NEUROLOGICAL: Higher mental function: The patient is awake, alert, oriented to self, place and time. She was able to state the last 3 [place] president correctly. Patient is following simple and complex commands. No aphasia and no neglect. Cranial nerves: The pupils are round, equal and reactive to light and accommodation. Visual hendricks are full to confrontation throughout. Extraocular movement is intact no nystagmus is noted. Facial sensation is normal to touch throughout. The facial strength is normal throughout. Hearing is normal bilaterally to hand rub. Tongue is midline and moved [id number] without any difficulty. No dysarthria is noted. Shoulder shrug is normal bilaterally. Motor: Gait deferred. The strength is limited over left lower extremity because of pain but had at least 4+ and left ankle is 5/5. Otherwise 5 over 5 throughout. Normal tone and bulk. Cerebellum: Normal finger to nose bilaterally. Sensation: Sensation is normal to touch throughout. Reflexes (right/left): 2+ in uppers, 1+ at ankles and could not assess knees because of her refusal. Plantars are downgoing bilaterally. - Labs CBC & Chem 7: 09/03/20 06:46 09/03/20 06:45 Labs: Abnormal Lab Results - Last 24 Hours (Table) 09/03/20 09/03/20 09/03/20 Range/Units 06:45 06:46 11:53 Hgb 11.9 L (12.0-15.0) g/dL MCHC 31.5 L (32.0-37.0) g/dL D-Dimer 2.02 H (<0.60) mg/L FEU Est GFR (CKD-EPI)NonAf 56.6 L (60.0-200.0) AST 36 H (13-35) U/L Assessment and Plan Assessment: This is a 70-year-old woman that after she had surgery (left knee replacement) in June 2020 he started having visual hallucination that is worsening. Visual hallucination since left knee replacement 06/2020. Unsure exact cause. Possibly from medication use (on high dose on Wellbutrin, pain medication and has positive benzo that is not on her medication list) and possibly component of post-op delerium after left knee surgery. Cognitive impairment has been going on for last 1-2 years and per the daughter and it seemed mild (she had neuropsych evaluation and was told it was normal) Chronic history of depression Acute kidney injury--resolved Slight elevated AST-trending down (AST 44) Recent cataract surgery over left eye. Hypertension Plan: TSH: 2.23 (normal); vitamin B12: 397 (low normal) and I'll start the patient on vitamin B12 500 g daily. RBC folate: pending. I ordered a routine EEG and to be done today. I will not start the patient on antiepileptic drugs unless there is epidural to form discharges or seizure on the EEG. 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 I think the patient will benefit from the further workup as an outpatient and that she can see a neurosurgeon (after her knee recovers to avoid any limitation of exam) for large volume tap and if gait improved and no further urinary incontine nce then possibly PSYCHIATRY PHYSICIAN shunt. I ordered MRI the brain. Patient is on [place] 5/325 every 6 hours when necessary. I recommend to avoid any opiates or any sedation that would affect the patient's mental status. On home (Oxycodone, celebrex, seroquel and hig dose Wellbutrin) Psychiatry team is on board. I spoke with the psychiatrist at our facility and he said this could be due to medication effect I recommend the patient to follow-up in the dementia clinic as outpatient as well general neurologist within 2-3 weeks. We'll defer the rest of the medical management to the primary team. Magen Owen MD Neuro-Hospitalist Time with Patient: Less than 30
[2020-09-03] MEDS: ATORVASTATIN 20 MG TAB PO SCH (21:00)
[2020-09-03] MEDS ORDERED: risperiDONE 0.5 MG TAB PO SCH (21:00)
[2020-09-04 07:10] LABS: ALT 33 U/L (4-34); AST 40 U/L (14-36); African American GFR (CKD) 73 (>60 ml/min/1.73 sqM); Albumin 3.6 g/dL (3.5-5.0); Albumin/Globulin Ratio 1.2; Alkaline Phosphatase 79 U/L (38-126); Anion Gap 5 mmol/L; Blood Urea Nitrogen 15 mg/dL (7-17); Carbon Dioxide 29 mmol/L (22-30); Chloride 105 mmol/L (98-107); Globulin 2.9 g/dL; Glucose 97 mg/dL (74-99); Non-African American GFR(CKD) 64 (>60 ml/min/1.73 sqM); Potassium 3.2 mmol/L (3.5-5.1); Sodium 139 mmol/L (137-145); Total Bilirubin 0.4 mg/dL (0.2-1.3); Total Protein 6.5 g/dL (6.3-8.2)
[2020-09-04] MEDS: PANTOPRAZOLE 40 MG TABLET PO SCH (07:26)
[2020-09-04] MEDS: ACETAMINOPHEN TAB 500 MG TAB PO SCH ×2 (07:26→14:38)
[2020-09-04] MEDS: POTASSIUM CHLORIDE ER 10 MEQ TAB.ER.PRT PO SCH (07:26)
[2020-09-04] MEDS: amLODIPine 10 MG TAB PO SCH (07:26)
[2020-09-04] MEDS: FUROSEMIDE 20 MG TAB PO SCH (07:26)
[2020-09-04] MEDS: HEPARIN SODIUM,PORCINE 5,000 UNIT/ML 1 ML VIAL SQ SCH (07:27)
--- NOTE | 2020-09-04 08:46 | MR ---
EXAMINATION TYPE: MR brain w con DATE OF EXAM: 09/04/2020 COMPARISON: MRI brain September 03, 2020. CT brain September 01, 2020 HISTORY: Meningioma vs mass. Visual hallucination, abnormal MRI. TECHNIQUE: Multiplanar, multisequence images of the brain and brainstem is performed with IV contrast, utilizing 11 mL intravenous Gadavist . FINDINGS: Postcontrast images of the anterior right temporal region at area of concern on MRI do not show dense homogeneous postcontrast enhancement to suggest meningioma. There is rim type enhancement with lesion having dural extension and continuity with a small vessel along the anterior and superior aspects. Finding corresponds to the ossified or calcified round structure on CT axial image 15. No a reas of additional specialized enhancing mass or enhancement noted. Normal draining dural venous sinu ses identified. IMPRESSION: Extra-axial 8mm lesion in anterior right middle cranial fossa redemonstrated. I would fav or ossified or calcified meningioma as most likely etiology. Lack of enhancement would be expected fo r densely ossified or calcified meningioma. A thrombosed aneurysm would be in the differential but do es not usually show dense central ossification or calcification so is felt much less likely. Finding likely clinically insignificant and not accounting for patient's symptoms of visual hallucinations.
[2020-09-04 08:58] LABS: Basophils # (A) 0.03 X 10*3/uL (0.00-0.10); Basophils % (A) 0.4 %; Eosinophils # (A) 0.23 X 10*3/uL (0.04-0.35); Eosinophils % (A) 3.4 %; HCT 34.8 % (37.2-46.3); Lymphocytes % (A) 31.5 %; MCH 28.2 pg (27.0-32.0); MCHC 31.6 g/dL (32.0-37.0); MCV 89.2 fL (80.0-97.0); Mean Platelet Volume 11.2 fL (9.5-12.2); Monocytes # (A) 0.58 X 10*3/uL (0.20-1.00); Monocytes % (A) 8.7 %; Neutrophils % (A) 55.6 %; Platelet Count 240 X 10*3/uL (140-440); WBC 6.67 X 10*3/uL (4.50-10.00)
[2020-09-04] MEDS ORDERED: risperiDONE 0.25 MG TAB PO SCH (09:00)
[2020-09-04] MEDS ORDERED: risperiDONE 0.5 MG TAB PO SCH (09:00)
--- NOTE | 2020-09-04 10:50 | P.PN ---
Subjective Progress Note Date: 09/04/20 She was seen at bedside and per the patient she stated that she continues to see and it's crawling on her body and but it's brief and she stated it can happen anytime. She knows what she seeing is not real. Otherwise denies focal weakness, numbness, nausea, vomiting. An EEG on 09/03/2020 is normal. There are no focal slowing, epileptiform discharges or seizure in the EEG. MRI the brain on 09/03/2020 it is reported as finding may be indicated of age related atrophy and chronic small vessel ischemia, correlate to exclude normal pressure hydrocephalus. Probable meningioma as described previously, contrast enhance exam can be performed for additional evaluation. In the body of the report it is mentioned that the anterior aspect of the right temporal lobe measuring approximately 7-8 mm..... and may represent calcified meningioma. As a result MRI of the brain with gadolinium was done today and it was reported as "extra-axial 8 mm lesion in the anterior right middle cranial fossa redemonstrated. I would favor ossified or calcified meningioma as most likely etiology. Lack of enhancement would be expected for density ossified or calcified meningioma. A thrombosed aneurysm would be in the differential but does not usually showed dense central ossification or calcification so is felt much less likely. Findings likely clinically insignificant and not accounting for the patient symptoms of visual hallucination" Objective - Vital Signs Vital signs: Vital Signs Temp 98.0 F 09/04/20 08:00 Pulse 66 09/04/20 08:00 Resp 16 09/04/20 08:00 BP 118/62 09/04/20 08:00 Pulse Ox 94 L 09/04/20 08:00 Intake & Output 09/03/20 09/04/20 09/04/20 18:59 06:59 18:59 Other: Voiding Method Bedside Commode Bedside Commode Diaper Diaper # Voids 5 1 - Exam GENERAL: The patient is lying in bed and is not in acute distress. NEUROLOGICAL: Higher mental function: The patient is awake, alert, oriented to self, place and time. She was able to state the last 3 U.[place]. president correctly. Patient is following simple and complex commands. No aphasia and no neglect. Cranial nerves: The pupils are round, equal and reactive to light and accommodation. Visual hendricks are full to confrontation throughout. Extraocular movement is intact no nystagmus is noted. Facial sensation is normal to touch throughout. The facial strength is normal throughout. Hearing is normal bilaterally to hand rub. Tongue is midline and moved [id number] without any d ifficulty. No dysarthria is noted. Shoulder shrug is normal bilaterally. Motor: Gait deferred. The strength is limited over left lower extremity because of pain but had at least 4+ and left ankle is 5/5. Otherwise 5 over 5 throughout. Normal tone and bulk. Cerebellum: Normal finger to nose bilaterally. Sensation: Sensation is normal to touch throughout. Reflexes (right/left): 2+ in uppers, 1+ at ankles and could not assess knees because of her refusal. Plantars are downgoing bilaterally. - Labs CBC & Chem 7: 09/04/20 06:30 09/04/20 06:30 Labs: Abnormal Lab Results - Last 24 Hours (Table) 09/03/20 09/03/20 09/03/20 Range/Units 06:45 06:46 11:53 RBC (4.10-5.20) X 10*6/uL Hgb 11.9 L (12.0-15.0) g/dL Hct (37.2-46.3) % MCHC 31.5 L (32.0-37.0) g/dL D-Dimer 2.02 H (<0.60) mg/L FEU Potassium (3.5-5.1) mmol/L Est GFR (CKD-EPI)NonAf 56.6 L (60.0-200.0) AST 36 H (13-35) U/L 09/04/20 09/04/20 09/04/20 Range/Units 06:30 06:30 06:30 RBC 3.90 L (4.10-5.20) X 10*6/uL Hgb 11.0 L (12.0-15.0) g/dL Hct 34.8 L (37.2-46.3) % MCHC 31.6 L (32.0-37.0) g/dL D-Dimer 1.39 H (<0.60) mg/L FEU Potassium 3.2 L (3.5-5.1) mmol/L Est GFR (CKD-EPI)NonAf (60.0-200.0) AST 40 H (13-35) U/L Assessment and Plan Assessment: This is a 70-year-old woman that after she had surgery (left knee replacement) in June 2020 he started having visual hallucination that is worsening. Formed Visual hallucination since left knee replacement 06/2020. Seem possibly due to right anterior temporal lobe meningioma. I cannot exclude exacerbation or component from post-op delerium or medication effect (high dose Seroquel, Pain meds exacerbating her psychosis, but I am leaning more towards meningioma as culprit. Cognitive impairment has been going on for last 1-2 years and per the daughter and it seemed mild (she had neuropsych evaluation and was told it was normal) Chronic history of depression Acute kidney injury--resolved Slight elevated AST-trending down (AST 44) Recent cataract surgery over left eye. Hypertension Plan: TSH: 2.23 (normal); vitamin B12: 397 (low normal) and I'll start the patient on vitamin B12 500 g daily. RBC folate: pending. An EEG on 09/03/2020 is normal. There are no focal slowing, epileptiform discharges or seizure in the EEG. MRI the brain on 09/03/2020 it is reported as finding may be indicated of age related atrophy and chronic small vessel ischemia, correlate to exclude normal pressure hydrocephalus. Probable meningioma as described previously, contrast enhance exam can be performed for additional evaluation. In the body of the report it is mentioned that the anterior aspect of the right temporal lobe measuring approximately 7-8 mm..... and may represent calcified meningioma. As a result MRI of the brain with gadolinium was done today and it was reported as "extra-axial 8 mm lesion in the anterior right middle cranial fossa redemonstrated. I would favor ossified or calcified meningioma as most likely etiology. Lack of enhancement would be expected for density ossified or calcified meningioma. A thrombosed aneurysm would be in the differential but does not usually showed dense central ossification or calcification so is felt much less likely. Findings likely clinically insignificant and not accounting for the patient symptoms of visual hallucination" CT of the head and neck was reported as suboptimal study without significant stenosis in the common or internal carotid arteries bilaterally. No significant stenosis or aneurysm at the level [place]. Right temporal meningioma can cause formed visual hallucination (Article: Pyschiatric aspects of brain tumors: A review Mar 24 2015) I started the patient on Keppra 500 mg 1 tablet twice a day. I recommended the patient follows up with a neurosurgeon as an outpatient as well as a neurologist as an outpatient within 1-[address] [place]uriy [place] ([place] [id number] [id number], [place] [address] Regarding her questionable nromal pressure hydrocephalus that is seen on the CT of the head from the history the patient stated that she's been having urinary incontinence since April and the as well as that she feels her gait has been off some not sure if her gait is off because of the knee or not. I think the patient will benefit from the further workup as an outpatient and that she can see a neurosurgeon (after her knee recovers to avoid any limitation of exam) for large volume tap and if gait improved and no further urinary incontinence then possibly LABORATORY CHEMICAL ASSISTANT shunt. Avoid opiates or any sedation or affect the patient's mentation. Psychiatry team is on board. I recommend the patient to follow-up in the dementia clinic as outpatient as well general neurologist within 2-3 weeks (per the daughter the patient has an appointment with Dr. Hammer this month). We'll defer the rest of the medical management to the primary team. The plan was discussed with the patient, patient's daughter via phone (Olga). There is no further workup from a neurological perspective that. She is clear from a neurological standpoint. Magen Owen MD Neuro-Hospitalist Time with Patient: Greater than 30
[2020-09-04] MEDS: 1: MVI, ADULT NO.4 WITH VIT K 10 ML, THIAMINE 100 MG, FOLIC ACID 1 MG in SODIUM CHLORIDE IV SCH ×4 (10:51)
[2020-09-04] MEDS ORDERED: levETIRAcetam 500 MG TAB PO SCH (11:00)
--- NOTE | 2020-09-04 11:14 | P.CONS ---
History of Present Illness - Reason for Consult Consult date: 09/04/20 Increased D-Dimer Requesting physician: Donato Rangel - History of Present Illness Ms Hanks is a pleasant white female, with overall well-controlled medical problems. The patient had a routine mammogram done on 08/23/19, which revealed a small focal asymmetric density in the central aspect of the right breast. She had an ultrasound on 09/05/19 that showed a 0.5 x 0.3 x 0.5 cm hypoechoic area, about 8 cm from the nipple. This was classified as by rads 4. The patient had an ultrasound-guided core biopsy on 11/19/19. This revealed minute fragments of breast tissue with at least DCIS. ER and AR were positive. She was therefore referred here for further evaluation and recommendations. She denied any prior history of breast biopsies or any personal history of cancer. Prior mammogram had been at least 2 years ago. There is no family history of breast or ovarian cancer. 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 She has a history of smoking 2 packs a day since 1968. She quit in 2013. She does have known COPD but is not oxygen dependent and denies any hospitalization due to respira tory complaints. based on her diagnosis and clinical stage, she was referred for surgical evaluation. The patient had lumpectomy with sentinel node biopsy on 01/17/20. 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 Margins were negative. 0/3 sentinel nodes were involved. she was then seen by radiation oncology and not felt to require adjuvant radiation she was started on tamoxifen in 02/19. Telemedicine 07/01/20: The patient had her knee surgery on 06/09/20. She has continued on Tamoxifen, with her continued hallucinations and elevated dimer consider holding tamoxifen for 4 weeks to re-access if hallucinations improve Review of Systems ROS unobtainable: due to mental status Past Medical History Past Medical History: COPD, Dementia, Hypertension History of Any Multi-Drug Resistant Organisms: None Reported Past Surgical History: Joint Replacement Additional Past Surgical History / Comment(s): cataract surgery Past Psychological History: No Psychological Hx Reported Smoking Status: Former smoker Past Alcohol Use History: None Reported Past Drug Use History: None Reported Medications and Allergies Home Medications Medication Instructions Recorded Confirmed Type Acetaminophen Tab [Tylenol] 1,000 mg PO TID@0700,1400,2200 09/01/20 09/01/20 His tory Furosemide [Lasix] 20 mg PO DAILY@0700 09/01/20 09/01/20 History Potassium Chloride ER [K-Dur 10] 10 meq PO DAILY@0700 09/01/20 09/01/20 History Simvastatin 40 mg PO DAILY@2200 09/01/20 09/01/20 History Tamoxifen Citrate 20 mg PO DAILY@0700 09/01/20 09/01/20 History amLODIPine [Norvasc] 10 mg PO DAILY@0700 09/01/20 09/01/20 History Folic Acid 1 mg PO DAILY #30 tablet 09/04/20 Rx HYDROcodone/APAP 5-325MG [[place] 1 each PO TID #10 tab 09/04/20 Rx 5-325] Multivitamins, Thera [Multivitamin] 1 tab PO DAILY #30 tablet 09/04/20 Rx Pantoprazole [Protonix] 40 mg PO AC-BRKFST 30 Days #30 09/04/20 Rx tablet. Thiamine [Vitamin B-1] 100 mg PO DAILY 30 Days #30 tablet 09/04/20 Rx levETIRAcetam [Keppra] 500 mg PO Q12HR 30 Days #60 tab 09/04/20 Rx risperiDONE [RisperDAL] 1 mg PO DAILY 30 Days #30 tab 09/04/20 Rx risperiDONE [RisperDAL] 1.5 mg PO HS 30 Days #90 tab 09/04/20 Rx Allergies Allergy/AdvReac Type Severity Reaction Status Date / Time No Known Allergies Allergy Verified 09/01/20 16:50 Physical Exam Vitals: Vital Signs Temp Pulse Resp BP Pulse Ox 09/04/20 08:00 98.0 F 66 16 118/62 94 L 09/04/20 01:29 97.6 F 69 16 108/65 98 09/03/20 19:28 97.8 F 74 15 146/81 94 L 09/03/20 14:00 98.1 F 76 16 110/75 94 L Intake and Output 09/03/20 09/04/20 09/04/20 22:59 06:59 14:59 Intake Total 1011.2 Balance 1011.2 Intake: Intake, IV Titration 1011.2 Amount Mvi, Adult No.4 with Vit 1011.2 K 10 ml Thiamine 100 mg Folic Acid 1 mg In Sodium Chloride 0.9% 1,000 ml @ 100 mls/hr IV .[facility] Rx#: [id number] Other: Voiding Method Bedside Commode Bedside Commode Diaper Diaper # Voids 1 - Constitutional General appearance: cooperative - EENT Eyes: EOMI ENT: hard of hearing - Neck Neck: normal ROM - Respiratory Respiratory: bilateral: CTA - Cardiovascular Rhythm: irregularly irregular - Integumentary Integumentary: pale - Neurologic ANIKA - Musculoskeletal Musculoskeletal: generalized weakness - Psychiatric intermittent poor historian confusion Results CBC & Chem 7: 09/04/20 06:30 09/04/20 06:30 Labs: Abnormal Lab Results - Last 24 Hours (Table) 09/03/20 09/03/20 09/04/20 Range/Units 06:45 11:53 06:30 RBC 3.90 L (4.10-5.20) X 10*6/uL Hgb 11.0 L (12.0-15.0) g/dL Hct 34.8 L (37.2-46.3) % MCHC 31.6 L (32.0-37.0) g/dL D-Dimer 2.02 H (<0.60) mg/L FEU Potassium (3.5-5.1) mmol/L Est GFR (CKD-EPI)NonAf 56.6 L (60.0-200.0) AST 36 H (13-35) U/L 09/04/20 09/04/20 Range/Units 06:30 06:30 RBC (4.10-5.20) X 10*6/uL Hgb (12.0-15.0) g/dL Hct (37.2-46.3) % MCHC (32.0-37.0) g/dL D-Dimer 1.39 H (<0.60) mg/L FEU Potassium 3.2 L (3.5-5.1) mmol/L Est GFR (CKD-EPI)NonAf (60.0-200.0) AST 40 H (13-35) U/L CT scan - chest: report reviewed Venous US: report reviewed Assessment and Plan Plan: Assessment and recommendations: 70 one year old female who presented with hallucinations following knee replacement in 2019. She also shows an elevated D-dimer and therefore hematology asked to evaluate. Differentials of increased D-Dimer may include: Infection, recent surgery, DVT, Hypoxia Will further evaluate Coags and nutritional deficits Rec further infectious work-up and ?rejection of hardware used with replacement Blood Cultures, urine cultures, Chest Xray CTA - neg PE, Doppler neg for DVT Neurology is following. Agree with CT A head and neck Review of MRI subcentimeter right middle lesion in anterior cranial fossa (non- specific to symptoms, non-enhanced) Will trial hold Tamoxifen to re-assess hallucinations. Physician Attest: I have completed the full history and physical and agreee with above dictation, dictated as a scribe.
--- NOTE | 2020-09-04 12:55 | CT ---
EXAMINATION TYPE: CT angio head neck DATE OF EXAM: 09/04/2020 HISTORY: Abnormal MRI COMPARISON: MRI brain earlier today. CT DLP: 673.9 mGycm. Automated Exposure Control for Dose Reduction was Utilized. TECHNIQUE: CTA scan of the head and neck are performed with IV Contrast, patient injected with 65 mL of Isovue 370, axial images are obtained, coronal and sagittal reformatted images are reviewed. Thre e-D reconstructed images are created on an independent workstation and reviewed. FINDINGS: Carotid/Vascular Structures: Normal three-vessel origin from aortic arch. No significant plaque or st enosis. Normal origin right common carotid artery from brachiocephalic artery. Some artifact related to patient's large body habitus and motion. No obvious significant stenosis in the common carotid art eries bilaterally. Mild to moderate mixed plaque at carotid bulb level bilaterally. No significant st enosis in the external carotid arteries. Prominent narrowing at origin of left internal carotid arter y with a greater than 50% stenosis felt present. No significant stenosis on the right. There is a tor tuous course to the internal carotid arteries bilaterally. There is dominant left vertebral artery. Vertebral arteries are patent to basilar junction. There is patent right posterior communicating artery. There is hypoplastic left posterior communicating artery . No significant focal stenosis or aneurysmal change seen. Patent small caliber anterior communicatin g artery. No significant focal stenosis or aneurysmal change seen. Other: Small 9 mm calcified lesion anterior right middle cranial fossa axial image 19 is almost certa inly not calcified thrombosed aneurysm based on location and calcific appearance. Scattered prominent but subcentimeter lymph nodes throughout the neck bilaterally. Largest left subma ndibular region measures 1.5 by just under 1.0 cm image 43. Loss of normal cervical curvature with moderate spurring and disc space narrowing C4-C5 through C7-T1 levels. Grade 1 anterolisthesis C7 on T1. IMPRESSION: Suboptimal study without significant stenosis in common or internal carotid arteries bila terally. No significant stenosis or aneurysm at level [place].
[2020-09-04 13:06] LABS: Partial Thromboplastin Time 25.1 sec (22.0-30.0); Prothrombin Time 10.8 sec (9.0-12.0)
[2020-09-04 13:17] LABS: Appearance,Urine Clear (Clear); Bilirubin,Urine Negative (Negative); Blood,Urine Negative (Negative); Color,Urine Light Yellow; Glucose,Urine (UA) Negative (Negative); Ketones,Urine Negative (Negative); Leukocyte Esterase,Urine Negative (Negative); Nitrite,Urine Negative (Negative); Protein,Urine Negative (Negative); Urobilinogen,Urine <2.0 mg/dL (<2.0)
--- NOTE | 2020-09-04 13:37 | XR ---
EXAMINATION TYPE: XR chest 2V DATE OF EXAM: 09/04/2020 COMPARISON: Chest x-ray 3 days ago. CTA chest 2 days ago. HISTORY: Hypoxia. TECHNIQUE: Frontal and lateral views of the chest are obtained. FINDINGS: There is chronic parenchymal change bilaterally without suspicious focal air space opacity , pleural effusion, or pneumothorax seen. The cardiac silhouette size is enlarged. Calcifications at the level of mitral valve or annulus redemonstrated. Atherosclerotic change aortic knob redemonstrat ed. The osseous structures are intact. IMPRESSION: Cardiomegaly and chronic changes without acute pulmonary process.
[2020-09-04 13:40] VITALS: BP 118/67; PULSE 69; RESP 19; TEMP 97.6
--- NOTE | 2020-09-04 13:42 | P.PN ---
Progress Note - Text Progress Note Date: 09/04/20 IDENTIFYING DATA: This patient is a , retired, 70-year-old female who presents to the emergency department with a chief complaint of visual hallucinations INTERVAL HISTORY: Patient was seen resting in bed and was directable and agreeable to speak with the short story writer. The patient reports that her visual hallucinations have decreased in severity but continued to be present. She continues to report seeing bugs are crawling along the diaz but states that they have decreased in frequency and length that they appear. She does not endorse any visual hallucinations of cats or other animals. She does not report any auditory hallucinations patient denies any paranoia or other delusions. She has been adherent to medications is not reporting any significant side effects at this time. Patient reports no issues with sleep or appetite. MENTAL STATUS EXAM: General Appearance: Patient appears to be stated age is alert, directable, and cooperative. Patient is dressed in hospital gown. Poor dentition. Behavior: Patient is calmly seated without any agitated behavior. Approaches cooperative and polite. Psychomotor activity appears normal. Speech: Patient's speech is fluent and nonpressured. Mood/Affect: Mood is "feeling better." Affect is congruent and appropriate. Suicidality/Homicidality: Patient denies having any suicidal or homicidal ideation intent or plan. Perceptions: The patient is not reporting any tactile or auditory hallucinations. She is endorsing visual hallucinations which are decreasing in severity. Though content/process: There is no evidence of any delusional thought content and thought process is linear and goal-directed. Memory and concentration: AOX3, grossly intact for the purposes of this session Judgment and insight: Improving mildly IMPRESSIONS: Psychosis, unspecified - Strongly suspect secondary to medication side effects such as Wellbutrin due to increased dopaminergic action of this medication as the patient is on a significantly high dose. Furthermore, the patient is also prescribed oxycodone 5 mg every 4 hours as needed for pain at home as well. These medications may precipitate or exacerbate psychosis. The patient also tested positive for benzodiazepines which is not on her medication list. -The patient may also be experiencing a postoperative delirium after her left knee replacement surgery this past June. Depressive disorder, unspecified Neurocognitive disorder Acute kidney injury - resolving Recent cataract surgery over the left eye ASSESSMENT: The patient is endorsing mild improvement in her psychotic symptoms. We'll increase the patient's morning Risperdal dose. Review the patient's MRI of the head revealed an 8 mm lesion in the anterior right middle screen and fossa. As read by the radiologist, "findings are likely clinically insignificant and not accounting for the patient's symptoms of visual hallucinations." PLAN: -At this time patient DOES NOT meet criteria for inpatient psychiatric admission. -Delirium precautions recommended with patient including - avoiding use of narcotics and QA TEST ANALYST sedatives, limit anticholinergic medications when possible, frequent re-orientation, minimize use of restraints, open window shades during the day and close them at night -Would recommend the following medication changes/additions: Continue to hold Wellbutrin. Recommend discontinuation of Wellbutrin upon discharge. We will increase Risperdal to 1 mg by mouth every morning and continue 1.5 mg by mouth daily at bedtime to address psychosis. Strongly recommend limiting pain medication which may contribute to patient's history of falls as well as psychosis. -Psychiatry will continue to follow while patient is hospitalized. -When she is medically stable, patient is cleared for discharge from the Psychiatric standpoint. Recommend outpatient psychiatric follow-up.
[2020-09-04] MEDS ORDERED: POTASSIUM CHLORIDE ER 20 MEQ TAB.ER PO STA (14:34)
[2020-09-05 03:23] LABS: % Iron Saturation 14.09 (12.00-45.00); Iron 41 ug/dL (50-170); LDH 294 U/L (120-246); Total Iron Binding Capacity 291 ug/dL (228-460)
[2020-09-05 04:00] LABS: Folate, Serum >24.0 ng/mL
--- NOTE | 2020-09-05 06:08 | DS ---
DISCHARGE SUMMARY DATE OF SERVICE: 09/04/2020 FINAL DIAGNOSIS: 1. Visual hallucinations, possible metabolic encephalopathy, possibly medication induced. 2. Possible normal-pressure hydrocephalus. 3. Elevated D-dimer, persistent. 4. Possibly calcified meningioma on the MRI. 5. No evidence of pulmonary embolism. 6. Dehydration with acute renal failure with acute tubular necrosis present on admission. 7. Elevated AST, ALT, and mild hepatitis. 8. Chronic obstructive pulmonary disease. 9. Dementia. 10.Hypertension. 11.History of recent cataract surgery. 12.History of recent knee surgery. 13.History of degenerative joint disease. 14.Remote history of nicotine dependence. 15.Obesity with body mass index of 43.9. 16.FULL CODE. DISCHARGE DISPOSITION: The patient will be discharged in stable condition with guarded prognosis. Total time taken 35 minutes. Discharge cleared by multiple consultants. HISTORY OF PRESENT ILLNESS: This 70-year-old woman with a past medical history of multiple medical problems was admitted with significant hallucinations. The patient is apparently seeing bugs and picking bugs from the patient's body. The patient was evaluated and had symptomatic treatment with Psychiatry and Neurology. MRI showed calcified meningioma and recommended to rule out NPH. Neurology recommended outpatient followup and Neurosurgery evaluation also. Otherwise pain medications also stopped because of the concerns of producing hallucinations. Hemoglobin 11, sodium 139, potassium 3.2 being corrected. PAST MEDICAL HISTORY: Reviewed. PHYSICAL EXAMINATION: On exam, vitals are stable. Cardiovascular S1 and S2. Abdomen soft. Nervous system: No focal deficits. DISCHARGE ADVICE AND MEDICATIONS: 1. Diet is cardiac diet. 2. Activity limited until followup. 3. Follow up with Dr. Pavel Loya in 2-3 days. 4. Follow up with Dr. Hammer. 5. Follow up with the neurosurgeon as advised. 6. Follow up with Dr. Sotelo for evaluation of the elevated D-dimer. 7. Follow up with Psych as recommended. Medications are as follows: 1. K-Dur 10 mEq p.o. daily. 2. Lasix 20 mg daily. 3. Norvasc 10 mg daily. 4. Simvastatin 40 mg daily. 5. Tamoxifen 20 mg p.o. daily. 6. Tylenol p.r.n. 7. Folic acid 1 mg daily. 8. Keppra 500 mg p.o. b.i.d. 9. Multivitamins 1 p.o. daily. 10.[place] 5 mg t.i.d. p.r.n. 11.Protonix 40 mg daily. 12.Risperdal 1.5 mg q.h.s. and 1 mg p.o. daily to be adjusted in the outpatient setting. 13.Thiamine 100 mg p.o. daily. MMODL / IJN: [id number] /
[2020-09-05] MEDS ORDERED: risperiDONE 1 MG TAB PO SCH (09:00)
== END 2020-09-04 15:40 | disposition home or self-care (01) | DRG 91 ==
LOC: EC 12:46 → 4SSUR 17:10 → OBSVTOIN 09-02 13:54
PROVIDERS: ADMIT Hospitalist; ATTEND Hospitalist
DX: G92 Toxic encephalopathy (principal); N17.0 Acute kidney failure with tubular necrosis; G91.2 (Idiopathic) normal pressure hydrocephalus; Z68.41 Body mass index [BMI] 40.0-44.9, adult; F03.90 Unspecified dementia, unspecified severity, without behavioral disturbance, psychotic disturbance, mood disturbance, and anxiety; J44.9 Chronic obstructive pulmonary disease, unspecified; D32.9 Benign neoplasm of meninges, unspecified; E66.9 Obesity, unspecified; Z20.822 Contact with and (suspected) exposure to COVID-19; K75.9 Inflammatory liver disease, unspecified; E86.0 Dehydration; I10 Essential (primary) hypertension; F32.9 Major depressive disorder, single episode, unspecified; M47.9 Spondylosis, unspecified; R32 Unspecified urinary incontinence; R26.9 Unspecified abnormalities of gait and mobility; H91.90 Unspecified hearing loss, unspecified ear; H54.7 Unspecified visual loss; Z79.1 Long term (current) use of non-steroidal anti-inflammatories (NSAID); Z79.810 Long term (current) use of selective estrogen receptor modulators (SERMs); Z79.899 Other long term (current) drug therapy; Z96.652 Presence of left artificial knee joint; Z87.891 Personal history of nicotine dependence; Z98.49 Cataract extraction status, unspecified eye; Z87.81 Personal history of (healed) traumatic fracture; Z98.890 Other specified postprocedural states; Z86.19 Personal history of other infectious and parasitic diseases
CPT/HCPCS: 36415; 70450; 70496; 70498; 70551; 70552; 71045; 71046; 71275; 80053; 80306; 81003; 82075; 82150; 82306; 82607; 82728; 82746; 82747; 83540; 83550; 83615; 83735; 83921; 84443; 85025; 85379; 85610; 85652; 85730; 86140; 87040; 87635; 93005; 93970; 95819; 96360; 99285

== ENCOUNTER → 2020-11-11 | Outpatient (CLI) | payer MEDICARE ==
--- NOTE | 2020-11-12 12:33 | NM ---
EXAMINATION TYPE: NM DatScan Brain SPECT DATE OF EXAM: 11/11/2020 COMPARISON: NONE HISTORY: Essential tremor TECHNIQUE: 10 drops of Lugol's solution was administered 1 hour prior to injection as a thyroid bloc reba agent. After the administration of 4.42 mCi I-123 Ioflupane DaTscan. Images obtained 3 hours p ost injection. SPECT images of the brain were acquired with axial and coronal reconstructions. FINDINGS: The axial SPECT images demonstrate normal background activity. Accounting for head tilt, t here appears to be slight asymmetrically blunted comma-shaped appearance of the left corpus striatum. IMPRESSION: Slightly blunted striatal activity on the left may indicate early changes of idiopathic P arkinson's disease or Parkinsonian syndrome.
== END | disposition home or self-care (01) ==
LOC: RADNMMAIN 10:56
PROVIDERS: ATTEND Psychiatry & Neurology Neurology
DX: G25.0 Essential tremor (principal)
CPT/HCPCS: 78803; A9584

== ENCOUNTER → 2022-03-22 | Outpatient (CLI) | payer MEDICARE ==
[2022-03-22 22:30] LABS: HCT 42.4 % (37.2-46.3); HGB 13.6 g/dL (12.0-15.0); MCHC 32.1 g/dL (32.0-37.0); MCV 96.6 fL (80.0-97.0); Mean Platelet Volume 11.4 fL (9.5-12.2); NRBC Per 100 WBC 0 /100 WBCS (0.0-0.0); Platelet Count 253 X 10*3/uL (140-440); RBC 4.39 X 10*6/uL (4.10-5.20); RDW 12.4 % (11.5-14.5); WBC 8.63 X 10*3/uL (4.50-10.00)
[2022-03-22 23:52] LABS: ALT 21 U/L (8-44); AST 26 U/L (13-35); African American GFR (CKD) 85.4 (60.0-200.0); Albumin 4.4 g/dL (3.8-4.9); Albumin/Globulin Ratio 1.63 (1.60-3.17); Alkaline Phosphatase 99 U/L (41-126); BUN/Creat Ratio 13.88 Ratio (12.00-20.00); Blood Urea Nitrogen 11.1 mg/dL (9.0-27.0); Calcium 9.5 mg/dL (8.7-10.3); Carbon Dioxide 26.8 mmol/L (20.0-27.5); Chloride 101 mmol/L (96-109); Globulin 2.7 g/dL (1.6-3.3); Glucose 89 mg/dL (70-110); Non-African American GFR(CKD) 73.7 (60.0-200.0); Potassium 4.1 mmol/L (3.5-5.5); Sodium 139 mmol/L (135-145); Total Bilirubin <0.15 mg/dL (0.30-1.20); Total Protein 7.1 g/dL (6.2-8.2)
== END | disposition home or self-care (01) ==
LOC: LABWHC1 15:23
PROVIDERS: ATTEND Nurse Practitioner Family
DX: Z01.812 Encounter for preprocedural laboratory examination (principal); Z51.81 Encounter for therapeutic drug level monitoring
CPT/HCPCS: 36415; 80053; 85027